=== PATIENT | male | born 1945 ===

== ENCOUNTER 2016-09-07 09:18 | Emergency (ER) | payer MEDICARE ==
[2016-09-07 09:18] VITALS: BMI 34.0
--- NOTE | 2016-09-07 09:46 | C.PDOC ---
History Of Present Illness 70 y/o male presents to the ED with complaints of painful cyst/abscess to right posterior auricular area. Pt states has had this for 30 years, drained many years ago. Area is hard and painful with pressure, nonradiating. Denies headache , fever, chills or any other complaints. Time Seen by Provider: 09/07/16 09:36 Chief Complaint (Nursing): Abnormal Skin Integrity History Per: Patient History/Exam Limitations: no limitations Onset/Duration Of Symptoms: Days Current Symptoms Are (Timing): Worse Quality Of Symptoms: Painful, Swollen Severity: Moderate Recent travel outside of the [place]: No Past Medical History Reviewed: Historical Data, Nursing Documentation, Vital Signs Vital Signs: Last Vital Signs Temp 98.1 F 09/07/16 10:10 Pulse 86 09/07/16 10:10 Resp 16 09/07/16 10:10 BP 150/86 09/07/16 10:10 Pulse Ox 98 09/07/16 10:37 - Medical History PMH: Gastritis, HTN, Hypercholesterolemia, Hyperlipidemia Surgical History: Endoscopy Family History: States: Unknown Family Hx - Social History Hx Alcohol Use: Yes Hx Substance Use: No - Immunization History Hx Tetanus Toxoid Vaccination: No Hx Influenza Vaccination: Yes (2016) Hx Pneumococcal Vaccination: Yes (2016) Review Of Systems Except As Marked, All Systems Reviewed And Found Negative. Constitutional: Negative for: Fever, Chills Skin: Positive for: Other (painful cyst/abscess to right posterior auricular area) Physical Exam - Physical Exam Appears: Non-toxic, No Acute Distress Skin: Warm, Dry, Other (grape sized cyst behind right ear, firm and tender) Head: Atraumatic, Normacephalic Ear(s): Bilateral: Normal Chest: Symmetrical Cardiovascular: Rhythm Regular, No Murmur Respiratory: Normal Breath Sounds, No Rales, No Rhonchi, No Wheezing Neurological/Psych: Oriented x3, Normal Speech, Normal Cognition ED Course And Treatment O2 Sat by Pulse Oximetry: 98 (room air) Pulse Ox Interpretation: Normal Progress Note: I&D performed. Instructed patient to follow up with ENT in 3-4 days. - Incision & Drainage Of Abscess Anesthesia: Lidocaine 2% Procedure: Incised W/Scalpel Blade#: (11, 1/2 cm incision), Drained Pus (firm, foul smelling discharge) Disposition Counseled Patient/Family Regarding: Diagnosis, Need For Followup - Disposition Referrals: Rao Hung MD [Staff Provider] - Disposition: HOME/ ROUTINE Disposition Time: 10:02 Condition: STABLE Additional Instructions: Wash area with soap and water. Change bandage. Follow up with ENT as indicated. Return to the Emergency as needed. Instructions: Incision and Drainage (ED) Forms: General Discharge Instructions, [facility] ([place]) - POA Present On Arrival: None - Clinical Impression Clinical Impression: Abscess - Scribe Statement The provider has reviewed the documentation as recorded by the Charlotte Jay Provider Attestation: All medical record entries made by the Charlotte were at my direction and personally dictated by me. I have reviewed the chart and agree that the record accurately reflects my personal performance of the history, physical exam, medical decision making, and the department course for this patient. I have also personally directed, reviewed, and agree with the discharge instructions and disposition.
[2016-09-07] MEDS ORDERED: Lidocaine 2% Inj (20ml) INFIL ONE (09:47)
[2016-09-07] MEDS ORDERED: Lidocaine 2% Inj (20ml) ONE (09:50)
[2016-09-07 10:12] VITALS: BP 150/86; PULSE 86; RESP 16; TEMP 98.1
[2016-09-07 10:33] VITALS: O2SAT 98
== END 2016-09-07 10:18 | disposition home or self-care (01) ==
LOC: C.ER 09:18
DX: H60.01 Abscess of right external ear (principal)

== ENCOUNTER 2016-11-17 07:32 | Day surgery (SDC) | payer MEDICARE ==
[2016-11-02 08:51] VITALS: BMI 34.9
[2016-11-17] MEDS ORDERED: Acetaminophen-Codeine 300/30 mg Tab PO PRN (07:45)
[2016-11-17] MEDS ORDERED: Dextrose 5%/0.45% NS 1,000 ML IV SCH (07:45)
[2016-11-17] MEDS ORDERED: Midazolam 2 MG/2 ML VIAL ONE (10:12)
[2016-11-17] MEDS ORDERED: ceFAZolin IV 1 gm in Dextrose 1 GM/50 ML BAG IVPB ONE (10:20)
[2016-11-17] MEDS ORDERED: Lidocaine 2% w Epi 1:100,000 Inj IJ ONE (10:20)
[2016-11-17] MEDS ORDERED: Methylene Blue 10 mg/mL(10ml) IV ONE (10:20)
[2016-11-17] MEDS ORDERED: Bacitracin 500 Units/gm Oint Foilpak UD ONE (10:20)
[2016-11-17] MEDS ORDERED: HYDROmorphone 0.5 mg/0.5 ml ISec IVP PRN (10:54)
[2016-11-17 12:09] VITALS: RESP 16; O2SAT 95
[2016-11-17 12:54] VITALS: BP 128/59; PULSE 82; TEMP 97.3
--- NOTE | 2016-11-17 20:43 | OP ---
PROCEDURE DATE: 11/17/2016 PREOPERATIVE DIAGNOSIS: Right auricular cyst POSTOPERATIVE DIAGNOSIS: Right auricular cyst. PROCEDURE: Right auricular cyst removal. SIGNIFICANT FINDINGS: Right auricular cyst. PROCEDURE: The patient was brought into the room, placed in supine position, anesthesia was initiated through IV sedation. The head was turned. The patient's right ear was prepped and draped in the usual sterile manner. An incision was made around the cyst and was injected with lidocaine with epinephrine and dissections were done around the cyst using a knife and the cyst was removed. Bleeding was controlled using pressure and Bovie. A 5-0 nylon suture was used to approximate the skin. The patient was taken off the anesthesia and taken to the recovery room in a stable manner. Rao Hung MD
== END 2016-11-17 12:47 | disposition home or self-care (01) ==
LOC: C.SDS 07:32
PROVIDERS: ATTEND Otolaryngology
DX: Q18.1 Preauricular sinus and cyst (principal)
CPT/HCPCS: 69110; 82948; 88305; J0690; J2250; J3010

== ENCOUNTER 2017-10-07 07:40 | Emergency (ER) | payer MEDICARE ==
[2017-10-07 07:40] VITALS: BMI 34.9
[2017-10-07 07:56] VITALS: O2SAT 96
--- NOTE | 2017-10-07 08:42 | RAD ---
HISTORY: COMPARISON: 04/08/2015. TECHNIQUE: Chest PA and lateral FINDINGS: LINES AND TUBES: None. LUNG AND PLEURA: The lungs are well inflated and clear. No pleural effusion or pneumothorax. HEART AND MEDIASTINUM: The heart is not enlarged. The hilar and mediastinal contours are within normal limits. SKELETAL STRUCTURES: The bony structures are within normal limits for the patient's age. VISUALIZED UPPER ABDOMEN: Normal. OTHER FINDINGS: There is chronic elevation of the right hemidiaphragm. . IMPRESSION: No active pulmonary disease.
--- NOTE | 2017-10-07 09:31 | C.PDOC ---
Time Seen by Provider: 10/07/17 07:45 Chief Complaint (Nursing): Back Pain Past Medical History Vital Signs: Last Vital Signs Temp 98.2 F 10/07/17 07:54 Pulse 99 H 10/07/17 07:54 Resp 18 10/07/17 07:54 BP 156/63 H 10/07/17 07:54 Pulse Ox 96 10/07/17 07:54 - Medical History PMH: Gastritis, HTN, Hypercholesterolemia, Hyperlipidemia Denies: Chronic Kidney Disease Surgical History: Endoscopy Family History: States: Unknown Family Hx - Social History Hx Alcohol Use: Yes Hx Substance Use: No - Immunization History Hx Tetanus Toxoid Vaccination: No Hx Influenza Vaccination: Yes (2015) Hx Pneumococcal Vaccination: Yes (2015) ED Course And Treatment O2 Sat by Pulse Oximetry: 96 Disposition - Disposition Disposition: HOME/ ROUTINE Disposition Time: 09:30 Condition: STABLE Prescriptions: Ibuprofen [Motrin] 600 mg PO TID #15 tab Instructions: Muscle and Bone Pain (DC) Forms: Gen Discharge Inst Portuguese, [facility] (Portuguese) - Clinical Impression Clinical Impression: Thoracic back sprain
[2017-10-07 09:34] VITALS: BP 143/85; PULSE 95; RESP 19; TEMP 98.4
--- NOTE | 2017-10-07 09:34 | C.PDOC ---
History Of Present Illness 71-year-old male, PMHx includes arthritis, presents to the emergency department with complaints of non-traumatic mid-left upper back pain. Pain is intermittent in nature, ongoing for two weeks. Pt states pain worsened last night, and he was unable to sleep. He denies any headache, neck pain, chest pain, nausea/ vomiting, symptoms, numbness/weakness or any other associated symptoms. No other complaints at this time. Time Seen by Provider: 10/07/17 07:45 Chief Complaint (Nursing): Back Pain History Per: Patient History/Exam Limitations: no limitations Current Symptoms Are (Timing): Still Present Past Medical History Reviewed: Historical Data, Nursing Documentation, Vital Signs Vital Signs: Last Vital Signs Temp 98.4 F 10/07/17 09:33 Pulse 95 H 10/07/17 09:33 Resp 19 10/07/17 09:33 BP 143/85 10/07/17 09:33 Pulse Ox 96 10/07/17 09:35 - Medical History PMH: Gastritis, HTN, Hypercholesterolemia, Hyperlipidemia Denies: Chronic Kidney Disease Surgical History: Endoscopy Family History: States: No Known Family Hx - Social History Hx Alcohol Use: Yes Hx Substance Use: No - Immunization History Hx Tetanus Toxoid Vaccination: No Hx Influenza Vaccination: Yes (2016) Hx Pneumococcal Vaccination: Yes (2016) Review Of Systems Constitutional: Negative for: Fever, Chills Cardiovascular: Negative for: Chest Pain, Palpitations Respiratory: Negative for: Shortness of Breath Gastrointestinal: Negative for: Nausea, Vomiting Musculoskeletal: Positive for: Back Pain. Negative for: Neck Pain Skin: Negative for: Rash Neurological: Negative for: Weakness, Numbness, Headache, Dizziness Physical Exam - Physical Exam Appears: Non-toxic, No Acute Distress Skin: Normal Color, Warm, Dry, No Rash Head: Atraumatic, Normacephalic Eye(s): bilateral: Normal Inspection, PERRL, EOMI Nose: Normal Oral Mucosa: Moist Lips: Normal Appearing Neck: Normal ROM Chest: Symmetrical Cardiovascular: Rhythm Regular, No Murmur Respiratory: Normal Breath Sounds, No Accessory Muscle Use Gastrointestinal/Abdominal: Soft, No Tenderness Back: Paraspinal Tenderness (thoracic, reproducible) Extremity: Deformity (significant, B/L hands secondary to arthritic changes), No Swelling Neurological/Psych: Oriented x3, Normal Speech ED Course And Treatment O2 Sat by Pulse Oximetry: 96 (RA) Pulse Ox Interpretation: Normal Medical Decision Making Medical Decision Making: Plan: * Chest XR * Motrin, Tylenol * Reassess and Disposition Disposition Counseled Patient/Family Regarding: Studies Performed, Diagnosis - Disposition Disposition: HOME/ ROUTINE Disposition Time: 09:35 Condition: STABLE Prescriptions: Ibuprofen [Motrin] 600 mg PO TID #15 tab Forms: Gen Discharge Inst [place], [facility] ([place]) - Clinical Impression Clinical Impression: Thoracic back sprain - Scribe Statement The provider has reviewed the documentation as recorded by the Scribe (Jovan Kee) All medical record entries made by the Scribe were at my direction and personally dictated by me. I have reviewed the chart and agree that the record accurately reflects my personal performance of the history, physical exam, medical decision making, and the department course for this patient. I have also personally directed, reviewed, and agree with the discharge instructions and disposition.
== END 2017-10-07 10:04 | disposition home or self-care (01) ==
LOC: C.ER 07:40
DX: S23.3XXA Sprain of ligaments of thoracic spine, initial encounter (principal); X58.XXXA Exposure to other specified factors, initial encounter